=== PATIENT | male | born 1945 | race African-American/Black ===

== ENCOUNTER 2024-08-13 09:50 | Day surgery (SDC) | payer OTHER ==
[2024-08-09 10:11] VITALS: BMI 25.9
[2024-08-13 11:57] VITALS: RESP 16; TEMP 97.4
[2024-08-13 11:58] VITALS: BP 127/67; PULSE 69
== END 2024-08-13 11:58 | disposition home or self-care (01) ==
LOC: FASU-ENDO 09:50
PROVIDERS: ATTEND Internal Medicine Gastroenterology
PROC: 0DJD8ZZ Inspection of Lower Intestinal Tract, Via Natural or Artificial Opening Endoscopic (ICD-10-PCS; principal; 2024-08-13 10:59)
DX: Z12.11 Encounter for screening for malignant neoplasm of colon (principal); Z86.010 Personal history of colon polyps
CPT/HCPCS: 82962